=== PATIENT | male | born 1965 | race Caucasian/White ===

== ENCOUNTER → 2018-01-25 | Outpatient (CLI) | payer OTHER | LOC: FIMAGING 11:25 | PROVIDERS: ATTEND Orthopaedic Surgery | DX: M17.12 Unilateral primary osteoarthritis, left knee (principal) ==

== ENCOUNTER 2018-02-03 07:32 | Inpatient (IN) | payer BC ==
--- NOTE | 2018-02-03 06:42 | PDHPUP ---
History & Physical Update H&P update statement: This history and physical update is based on an assessment of the patient which was completed after admission or registration (within 24 hours), but prior to the surgery/procedure. H&P update: no change in patient's condition since H&P completed
--- NOTE | 2018-02-03 06:43 | PDIAF ---
- Diagnosis Diagnosis: left knee djd Code Status: Full Code - Medication Management Discharge Medications: electronically signed and located in the Home Medication List. - Orders Services needed: Home Care, Physical Therapy Home Care Face to Face: I certify that this patient was under my care and that I had the required bzka-uf-uvhp encounter meeting the encounter requirements on the discharge day. My findings support the fact that the patient is homebound as defined in Home Care Face to Face Continued: CMS Chapter 7 Medicare Benefits Manual 30.1.1 , The condition of the patient is such that there exists a normal inability to leave home and consequently, leaving home would require a considerable and taxing effort. Diet Recommendation: no restrictions on diet Diet Texture: Regular Texture Diet Additional Instructions: TOTAL JOINT ARTHROPLASTY DISCHARGE INSTRUCTIONS 1. Your surgeon follows the [facility] protocol for reducing your risk of DVT (blood clots) following surgery. Medication will be ordered to prevent blood clots. A sudden increase in calf pain and/or swelling could indicate a blood clot in your leg. If this occurs, please call your surgeon or his/her equal opportunity assistant. An ultrasound of the leg may be necessary to diagnose a blood clot. If you have conditions that make you a higher risk for blood clots, your surgeon may use more aggressive ways to prevent them. Notify your surgeon if you think you are a high risk for blood clots. 2. Wear your white surgical stockings (KATE hose) for 2 weeks. This decreases your swelling and may help prevent blood clots. It is ok to remove KATE hose at night time to give your legs a break. 3. Swelling and bruising in the surgical leg is common. If you feel that it is excessive, please notify your surgeon. 4. Elevate your surgical leg with the ankle above the hip several times every day. Please keep the leg straight when you elevate by putting pillows under your foot. Do not put pillows under your knee. This will make being able to fully straighten more difficult. This is uncomfortable, but try to do it as much as possible. 5. For total knee replacements use compressive wrap on your knee for 3-5 days after surgery, then you can discontinue it. 6. Use a walker or crutches for 1-2 weeks. Progress your weight-bearing as tolerated. You may start to use a cane when you feel stable and safe. 7. You will receive physical therapy instructions in the hospital. Continue those exercises at home. There are additional exercises in the total joint booklet you were given before surgery. Outpatient physical therapy will begin 7- 10 days after surgery. Please schedule this in advance. 8. Use ice on your knee at least 3-5 times every day for 30 minutes. This helps reduce pain and swelling. Also use it at night before falling asleep. 9. Leave your surgical dressing in place for 2 weeks. Your dressing is water resistant, but not waterproof. Cover it with Saran Wrap or Xqdwr-f-Uekq before showering. You may shower as soon as you feel safe entering a shower. If you notice bleeding from your incision 2 or 3 days after surgery, please notify your surgeon. 10. Due to narcotics, decreased activity and altered diet, most patients experience constipation after surgery. Use ypqt-yir-dlqwjjq stool softeners while you are on narcotics. 11. You may drive a car when you are comfortable bearing weight, have good muscular control of your leg and are off narcotics. This usually occurs 2-4 weeks after surgery, depending on which leg was operated on. 12. If there are questions not addressed here, please refer the [facility] book given for more information. If you still have questions, please contact your surgeon s office. 13. If you have a life-threatening emergency, please call 911 and go to the emergency room immediately. For non-life threatening emergencies, please call your physicians office for advice before going to the emergency room. - Follow Up Care Current Providers and Referrals: Bart Hutson MD [Primary Care Provider] - Basil Lopez MD [Medical Doctor] -
[~2018-02-03 07:32] MED LIST: EPINEPHRINE IU ONE; KETOROLAC TROMETHAMINE IU ONE; ROPIVACAINE 0.2% 80 MG, EPINEPHrine 0.2 MG, KETOROLAC TROMETHAMINE 30 MG in SYRINGE 0 ML IU ONE; ROPIVACAINE IU ONE; TRANEXAMIC ACID 1,000 MG in NS 100 ML IV ONE; TRANEXAMIC ACID 2,000 MG in NS 100 ML IV ONE; [UNRECOGNIZED DRUG - OTHER] IU ONE
[2018-02-03] MEDS ORDERED: FAMOTIDINE 20 MG TAB PO ONE (07:41)
[2018-02-03] MEDS ORDERED: ACETAMINOPHEN 325 MG TAB PO ONE (07:41)
[2018-02-03] MEDS ORDERED: ceFAZolin 2 GM/DEXTROSE 100 ML IV ONE (07:41)
[2018-02-03] MEDS ORDERED: LIDOCAINE 1% 2 ML INJ ID PRN (07:49)
[2018-02-03] MEDS ORDERED: LR 1,000 ML IV ONE (07:49)
[2018-02-03] MEDS ORDERED: CALCIUM CHLORIDE 1 GM/10 ML INJ ONE (08:17)
[2018-02-03] MEDS ORDERED: THROMBIN (BOVINE) 5,000 UNIT VIAL TP ONE (08:17)
[2018-02-03] MEDS ORDERED: ceFAZolin 1 GM/5 ML SYR ONE (08:18)
[2018-02-03 08:42] LABS: PLATELET COUNT 272 10^3/uL (150-400)
[2018-02-03] MEDS ORDERED: MIDAZOLAM 2 MG/2 ML VIAL IVP ONE (09:06)
--- NOTE | 2018-02-03 09:07 | PDANEPAE ---
ANE History of Present Illness tka ANE Past Medical History - Cardiovascular History Hx Hypertension: No Hx Arrhythmias: No Hx Chest Pain: No Hx Coronary Artery / Peripheral Vascular Disease: No Hx CHF / Valvular Disease: No Hx Palpitations: No - Pulmonary History Hx COPD: Yes Hx Asthma/Reactive Airway Disease: No Hx Recent Upper Respiratory Infection: No Hx Oxygen in Use at Home: No Hx Sleep Apnea: Yes Sleep Apnea Screening Result - Last Documented: Positive Pulmonary History Comment: beth positive uses cpap- instructed pt to bring to hospital - Neurologic History Hx Cerebrovascular Accident: No Hx Seizures: No Hx Dementia: No Neurologic History Comment: hx of prior back surgeries - Endocrine History Hx Diabetes: No Obesity: severe - Renal History Hx Renal Disorders: No - Liver History Hx Hepatic Disorders: No - Neurological & Psychiatric Hx Hx Neurological and Psychiatric Disorders: No - Cancer History Hx Cancer: No - Congenital Disorder History Hx Congenital Disorders: No - GI History Hx Gastrointestinal Disorders: No - Other Health History Other Health History: none - Chronic Pain History Chronic Pain: Yes (bilateral knees) - Surgical History Prior Surgeries: back surgery 8 weeks ago at [facility]. hernia surgery. previous back surgery ANE Review of Systems Review of Systems: - Exercise capacity Exercise capacity: <4 METS METS (RN): 3 METS ANE Patient History - Allergies Allergies/Adverse Reactions: codeine Allergy (Verified 01/31/18 16:50) Swelling/neck,face,throat morphine Allergy (Verified 01/31/18 16:50) Swelling/neck,face,throat - Home Medications Home medications: home medication list seen and reviewed Home Medications: Acetaminophen [Tylenol 325mg (*)] 325 mg PO Q6HRS PRN 01/31/18 [Last Taken 02/02 20:00] oxyCODONE/APAP 5/325 [Percocet 5/325 (*)] 0.5 tab PO DAILY 01/31/18 [Last Taken 02/02/18 08:00] - NPO status NPO Status: no food or drink >8 hours NPO Since - Liquids (Date): 02/02/18 NPO Since - Liquids (Time): 18:00 NPO Since - Solids (Date): 02/02/18 - Anes Hx Anes Hx: no prior problems - Smoking Hx Smoking Status: Never smoked - Family Anes Hx Family Hx Anesthesia Complications: none ANE Labs/Vital Signs - Labs Result Diagrams: 02/03/18 08:30 - Vital Signs Blood Pressure: 131/76 Heart Rate: 78 Respiratory Rate: 16 O2 Sat (%): 92 Height: 182.88 cm Weight: 158.757 kg ANE Physical Exam - Airway Mallampati Score: Class 2 Mouth exam: normal dental/mouth exam - Pulmonary Pulmonary: no respiratory distress - Cardiovascular Cardiovascular: regular rate and rhythym - ASA Status ASA Status: III ANE Anesthesia Plan Anesthesia Plan: general endotracheal anesthesia Regional Anesthesia: adductor canal FNB
[2018-02-03] MEDS ORDERED: DEXAMETHASONE 4 MG/ML VIAL ONE (09:09)
[2018-02-03] MEDS ORDERED: ROCURONIUM 50 MG/5 ML VIAL ONE ×2 (09:09→10:17)
[2018-02-03] MEDS ORDERED: SUCCINYLCHOLINE CHLORIDE 200 MG/10 ML SYR IVP ONE (09:09)
[2018-02-03] MEDS ORDERED: ONDANSETRON 4 MG/2 ML VIAL ONE (09:09)
[2018-02-03] MEDS ORDERED: KETOROLAC 30 MG/1 ML SDV ONE (09:09)
[2018-02-03] MEDS ORDERED: MIDAZOLAM 2 MG/2 ML VIAL ONE (09:13)
[2018-02-03] MEDS ORDERED: PROPOFOL 200 MG/20 ML VIAL ONE (09:15)
[2018-02-03] MEDS ORDERED: LIDOCAINE 2% 5 ML SDV ONE (09:15)
[2018-02-03] MEDS ORDERED: HYDROmorphONE/DILAUDID 2 MG/ML INJ ONE ×2 (09:35→11:53)
[2018-02-03] MEDS ORDERED: ROPIVACAINE HCL 150 MG/30 ML INJ ONE (09:56)
[2018-02-03] MEDS ORDERED: LABETALOL HCL 5 MG/ML 20 ML MDV ONE (10:00)
[2018-02-03] MEDS ORDERED: SUGAMMADEX SODIUM 200 MG/2 ML VIAL IVP ONE ×2 (11:02)
[2018-02-03] MEDS ORDERED: ALBUTEROL 3 ML DEYVIAL IH PRN (11:15)
[2018-02-03] MEDS ORDERED: oxyCODONE IR 5 MG TAB PO PRN (11:15)
[2018-02-03] MEDS ORDERED: TEMAZEPAM 15 MG CAP PO PRN (11:15)
[2018-02-03] MEDS ORDERED: POLYETHYLENE GLYCOL 3350 17 GM PKT PO PRN (11:15)
[2018-02-03] MEDS ORDERED: DIPHENOXYLATE/ATROPINE LOMOTIL 1 TAB PO PRN (11:15)
[2018-02-03] MEDS ORDERED: LACTULOSE 20 GM/30 ML UDCUP PO PRN (11:15)
[2018-02-03] MEDS ORDERED: diphenhydrAMINE 25 MG CAP PO PRN (11:15)
[2018-02-03] MEDS ORDERED: ONDANSETRON 4 MG/2 ML VIAL IVP PRN ×2 (11:15)
[2018-02-03] MEDS ORDERED: PROMETHAZINE HCL 25 MG SUPPR PR PRN (11:15)
[2018-02-03] MEDS ORDERED: METOCLOPRAMIDE 10 MG/2 ML VIAL IVP PRN (11:15)
[2018-02-03] MEDS ORDERED: NALOXONE HCL 0.4 MG/ML INJ IVP PRN (11:15)
[2018-02-03] MEDS ORDERED: BISACODYL 10 MG SUPP PR PRN (11:15)
[2018-02-03] MEDS ORDERED: CYCLOBENZAPRINE 10 MG TAB PO PRN (11:15)
[2018-02-03] MEDS ORDERED: PROMETHAZINE HCL 25 MG/ML INJ IVP PRN (11:15)
[2018-02-03] MEDS ORDERED: ONDANSETRON DISINTEGRATING 4 MG TAB PO PRN (11:15)
[2018-02-03] MEDS ORDERED: LR 500 ML IV PRN (11:15)
[2018-02-03] MEDS ORDERED: MAGNESIUM HYDROXIDE 30 ML UDCUP PO PRN (11:15)
--- NOTE | 2018-02-03 11:17 | POSTOPPROG ---
Post Op Note Date of Operation: 02/03/18 Surgeon: Basil Lopez Screener Operator: jose Anesthesiologist: alison Anesthesia: GET(General Endotracheal) Pre-op Diagnosis: left knee djd Post-op Diagnosis: same Indication: same Procedure: left tka Inf/Abcess present in the surg proc area at time of surgery?: No Depth: Deep Incisional (Fascial) EBL: 100-500
[2018-02-03] MEDS ORDERED: LR 1,000 ML IV SCH (11:30)
--- NOTE | 2018-02-03 11:52 | POSTANESTH ---
Post Anesthetic Evaluation Cardiovascular Status: Normal, Stable Respiratory Status: Normal, Stable Level of Consciousness/Mental Status: Can Participate in Eval Pain Control: Adequate, Prn Tx Ordered Nausea/Vomiting Control: Adequate, Prn Tx Ordered Complications Possibly Related to Anesthesia: None Noted
[2018-02-03] MEDS: HYDROmorphONE/DILAUDID 2 MG/ML INJ IVP PRN ×2 (11:55→12:06)
[2018-02-03] MEDS: ACETAMINOPHEN 325 MG TAB PO SCH ×2 (13:16→17:31)
--- NOTE | 2018-02-03 13:53 | PDMN ---
Medical Necessity Medical necessity: [facility] S700 knee arthroplasty OP: L TKA -- 2 days INPT approved auth # [id number] CPT 97334
--- NOTE | 2018-02-03 16:11 | ASMTCMCOM ---
CM Note CM Note Notes: Pt is s/p L TKA. PT/OT evals pending. He lives with his in [place]. Attempted to see to discuss d/c needs however pt sleeping. CM will follow for any d/c needs. D/C Plan: TBD Date Signed: 02/03/2018 04:10 PM Electronically Signed By:COSTA Quintero
[2018-02-03] MEDS: TRANEXAMIC ACID 650 MG TAB PO SCH (17:31)
[2018-02-03] MEDS: ceFAZolin 2 GM/DEXTROSE 100 ML IV SCH (17:34)
[2018-02-03] MEDS: ASPIRIN 325 MG TAB PO SCH (20:13)
[2018-02-03] MEDS: FAMOTIDINE 20 MG TAB PO SCH (20:13)
[2018-02-03] MEDS: SENNOSIDES/DOCUSATE SODIUM TAB PO SCH (20:13)
[2018-02-04] MEDS: ACETAMINOPHEN 325 MG TAB PO SCH ×2 (00:59→06:04)
[2018-02-04] MEDS: ceFAZolin 2 GM/DEXTROSE 100 ML IV SCH (01:00)
[2018-02-04] MEDS: TRANEXAMIC ACID 650 MG TAB PO SCH ×2 (01:00→12:22)
--- NOTE | 2018-02-04 07:37 | SOAPPROG ---
SOAP Progress Note Assessment/Plan: Assessment: s/p tka Plan:d/c home dvt precautions reviewed pt/ot fu at two weeks seek attn for increasing pain, cp sob or other complaint 02/04/18 07:36 Subjective: doing well mild pain no cp os sob Objective: Vital Signs Temp Pulse Resp BP Pulse Ox 36.6 C 94 16 114/66 94 02/04/18 02:50 02/04/18 02:50 02/04/18 02:50 02/04/18 02:50 02/04/18 02:50 Laboratory Results 02/04/18 04:25 02/03/18 02/04/18 02/05/18 05:59 05:59 05:59 Intake Total 1250 Output Total 650 Balance 600 dressing intact intact pf,df, ehl neg homans bailey xrays stable anatomic alignement no fx or lucency ICD10 Worksheet Patient Problems: Problems Problem Status Onset Arthritis of knee Acute - ICD10 Problem Qualifiers (1) Arthritis of knee
--- NOTE | 2018-02-04 07:37 | PDIAF ---
- Diagnosis Diagnosis: left knee djd Code Status: Full Code - Medication Management Discharge Medications: electronically signed and located in the Home Medication List. - Orders Services needed: Home Care, Physical Therapy Home Care Face to Face: I certify that this patient was under my care and that I had the required ckis-mh-glsf encounter meeting the encounter requirements on the discharge day. My findings support the fact that the patient is homebound as defined in Home Care Face to Face Continued: CMS Chapter 7 Medicare Benefits Manual 30.1.1 , The condition of the patient is such that there exists a normal inability to leave home and consequently, leaving home would require a considerable and taxing effort. Diet Recommendation: no restrictions on diet Diet Texture: Regular Texture Diet Additional Instructions: TOTAL JOINT ARTHROPLASTY DISCHARGE INSTRUCTIONS 1. Your surgeon follows the [facility] protocol for reducing your risk of DVT (blood clots) following surgery. Medication will be ordered to prevent blood clots. A sudden increase in calf pain and/or swelling could indicate a blood clot in your leg. If this occurs, please call your surgeon or his/her corporate law assistant. An ultrasound of the leg may be necessary to diagnose a blood clot. If you have conditions that make you a higher risk for blood clots, your surgeon may use more aggressive ways to prevent them. Notify your surgeon if you think you are a high risk for blood clots. 2. Wear your white surgical stockings (KATE hose) for 2 weeks. This decreases your swelling and may help prevent blood clots. It is ok to remove KATE hose at night time to give your legs a break. 3. Swelling and bruising in the surgical leg is common. If you feel that it is excessive, please notify your surgeon. 4. Elevate your surgical leg with the ankle above the hip several times every day. Please keep the leg straight when you elevate by putting pillows under your foot. Do not put pillows under your knee. This will make being able to fully straighten more difficult. This is uncomfortable, but try to do it as much as possible. 5. For total knee replacements use compressive wrap on your knee for 3-5 days after surgery, then you can discontinue it. 6. Use a walker or crutches for 1-2 weeks. Progress your weight-bearing as tolerated. You may start to use a cane when you feel stable and safe. 7. You will receive physical therapy instructions in the hospital. Continue those exercises at home. There are additional exercises in the total joint booklet you were given before surgery. Outpatient physical therapy will begin 7- 10 days after surgery. Please schedule this in advance. 8. Use ice on your knee at least 3-5 times every day for 30 minutes. This helps reduce pain and swelling. Also use it at night before falling asleep. 9. Leave your surgical dressing in place for 2 weeks. Your dressing is water resistant, but not waterproof. Cover it with Saran Wrap or Xdara-u-Cbex before showering. You may shower as soon as you feel safe entering a shower. If you notice bleeding from your incision 2 or 3 days after surgery, please notify your surgeon. 10. Due to narcotics, decreased activity and altered diet, most patients experience constipation after surgery. Use lmbt-rke-mxfptte stool softeners while you are on narcotics. 11. You may drive a car when you are comfortable bearing weight, have good muscular control of your leg and are off narcotics. This usually occurs 2-4 weeks after surgery, depending on which leg was operated on. 12. If there are questions not addressed here, please refer the [facility] book given for more information. If you still have questions, please contact your surgeon s office. 13. If you have a life-threatening emergency, please call 911 and go to the emergency room immediately. For non-life threatening emergencies, please call your physicians office for advice before going to the emergency room. - Follow Up Care Current Providers and Referrals: Bart Hutson MD [Primary Care Provider] - Basil Lopez MD [Medical Doctor] -
[2018-02-04] MEDS: FAMOTIDINE 20 MG TAB PO SCH (08:23)
[2018-02-04] MEDS: ASPIRIN 325 MG TAB PO SCH (08:23)
[2018-02-04] MEDS: SENNOSIDES/DOCUSATE SODIUM TAB PO SCH (08:25)
[2018-02-04 08:32] VITALS: BP 127/75
--- NOTE | 2018-02-04 12:19 | ASMTLACE ---
LACE Length of stay for Answers: 2 days current admission Acuity / Level of Answers: Yes Care: Did the patient have an inpatient admission? Comorbidities - select Answers: Chronic pulmonary disease all that apply Other Notes: sleep apnea # of Emergency department Answers: 0 visits in the last 6 months Score: 8 Date Signed: 02/04/2018 12:19 PM Electronically Signed By:COSTA Nunez
--- NOTE | 2018-02-04 12:31 | ASMTCMCOM ---
CM Note CM Note Notes: PT rec HHC, pt amenable. Orders sent in [employer] to [facility]. Pt address/phone verified. Date Signed: 02/04/2018 12:30 PM Electronically Signed By:COSTA Nunez
--- NOTE | 2018-02-05 13:54 | ASDISCHSUM ---
Discharge Information Plan Status:Home with Home Health Medically Cleared to Leave: Discharge Date:02/04/2018 12:40 PM CM D/C Disposition: ADT D/C Disposition:Home Health Service Projected Discharge Date:02/04/2018 11:00 AM Transportation at D/C: Discharge Delay Reason: Follow-Up Date:02/04/2018 11:00 AM Discharge Slot: Final Diagnosis: Placement Information Referral Type:*Home Health Care Services Referral ID:[id number] Provider Name:[facility] Address 1:[address] [address] Address 2: City:[place] Selection Factors: State:[place] Patient Contact Information Contact Name:PEEWEE Relationship: Address:[address] Home Phone: City:[place] Alternate Phone: State/Zip Code:[place] [address] Email: Financial Information Financial Class:BCOP Primary Plan Desc:BC OUT OF STATE [facility] Primary Plan Number:[id number] Secondary Plan Desc: Secondary Plan Number: Assessment Information LACE LACE Length of stay for Answers: 2 days current admission Acuity / Level of Answers: Yes Care: Did the patient have an inpatient admission? Comorbidities - select Answers: Chronic pulmonary disease all that apply Other Notes: sleep apnea # of Emergency department Answers: 0 visits in the last 6 months Score: 8 Date Signed: 02/04/2018 12:19 PM Electronically Signed By:COSTA Nunez [facility] CM Progress Note CM Note CM Note Notes: Pt is s/p L TKA. PT/OT evals pending. He lives with his in [place]. Attempted to see to discuss d/c needs however pt sleeping. CM will follow for any d/c needs. D/C Plan: TBD Date Signed: 02/03/2018 04:10 PM Electronically Signed By:COSTA Quintero [facility] CM Progress Note CM Note CM Note Notes: PT rec HHC, pt amenable. Orders sent in [facility] to [facility]. Pt address/phone verified. Date Signed: 02/04/2018 12:30 PM Electronically Signed By:COSTA Nunez Intervention Information
--- NOTE | 2018-02-09 13:01 | GOP ---
DATE OF OPERATION: 02/03/2018 SURGEON: Basil Lopez MD BLADE BENDER FURNACE TENDER: Devendra Joshi, certified surgical tech/first assistant who was a medical necessity for the entirety of the case. PREOPERATIVE DIAGNOSIS: Left knee degenerative joint disease. POSTOPERATIVE DIAGNOSIS: Left knee degenerative joint disease. PROCEDURE PERFORMED: Left total knee arthroplasty. FINDINGS: SPECIMENS: To Pathology, the bony cuts. INDICATIONS: The patient is a 52-year-old gentleman with end-stage arthritis to the left and right k nees. He has interference with his activities of daily living. He has failed all attempts at conser vative management. I have, therefore, recommended total knee replacement. He understands the surgic al procedure, risks, benefits, alternatives, and wished to proceed. DESCRIPTION OF PROCEDURE: Patient was identified in the preanesthesia area. Left knee was clearly d emarcated as operative site with an indelible marker. He was given 2 g of Ancef intravenously in rou te to the operative suite. In the OR, a spinal anesthetic was placed, followed by positioning the pa tient in supine position. Attention was turned to the left knee, which was sterilely prepped and tomas ped in usual fashion. Appropriate time-out procedure was carried out. The limb was exsanguinated wi th an Esmarch bandage. Tourniquet inflated to 300 mmHg. Standard anterior midline incision was made. Thick subcutaneous flaps were elevated, followed by med ial parapatellar arthrotomy. Subperiosteal elevation was carried out to the mid coronal plane. Retr actors were placed. There was tricompartmental arthritic change. Decision was made to proceed with total knee replacement. 2 pins were then placed medial, lateral across the distal femur, and the femoral reference array affi xed. Femoral check point was placed in the same area. A separate percutaneous incision was made ove r the mid tibia and 2 pins were then placed, followed by attaching the tibial reference array and the tibial check point was placed. All bony landmarks were entered in the computer in standard fashion. Using the MAKOplasty software, the knee was balanced through the flexion-extension arc. The resectio ns were made for a size 7 tibia, size 6 femur, and a 7 x 9 mm polyethylene spacer was then placed. T his allowed full extension and flexion to 125 degrees with no instability throughout the flexion-exte nsion arc. Trial components were withdrawn. The bony surfaces cleansed and the tibia and femur press-fit in sta ndard fashion. A 7 x 9 mm polyethylene spacer was then placed and confirmed to be fully seated. Thi s allowed full flexion extension and stability of the knee as previous. The knee cap was then everte d, cut in a freehand cutting technique, and drill holes were made for 38 mm poly patella. The knee c ap was then pressed into position. The knee was taken through full range of motion through flexion-e xtension arc and was stable. The wound was copiously irrigated with pulsatile lavage solution. The joint capsule instilled with a joint cocktail of ropivacaine, morphine, Toradol, and epinephrine. The medial parapatellar arthroto my closed using #1 Ethibond suture. The knee instilled with platelet-rich plasma. Subcutaneous tiss ue was closed using 2-0 Monocryl. Skin was closed using a ZipLine closure and sterile dressing was o mina-wrapped. Patient was awakened, extubated, and taken to recovery room in good, stable condition. TOTAL TOURNIQUET TIME: 1 hour and 10 minutes. COMPLICATIONS: None. IMPLANTS: Bone Gap Triathlon posterior stabilized femur size 6, size 7 tibia, 7 x 9 mm polyethylene s pacer, and 38 mm patella. DISPOSITION: To recovery room, then the floor. /[id number]/MODL
--- NOTE | 2018-02-09 13:26 | GDS ---
ADMISSION DIAGNOSIS: Left knee degenerative joint disease. DISCHARGE DIAGNOSIS: Left knee degenerative joint disease. PROCEDURE: Left total knee arthroplasty. HISTORY OF PRESENT ILLNESS: The patient is a 52-year-old gentleman with end-stage arthritis to both knees. He presents for elective total knee replacement on the left. He understood the risks, benefi ts, alternatives, and wished to proceed. Written consent was signed and placed in the patient's [facility] t. HOSPITAL COURSE: The patient was admitted overnight after uncomplicated total knee arthroplasty. He tolerated the procedure well. At the time of discharge, he is tolerating an oral diet, pain was wel l controlled on oral medicines. He is voiding without difficulty. Dressing is clean, dry, and intac t. DISCHARGE ACTIVITY: Weightbearing. Range of motion as tolerated. Keep the dressing intact. IF bec omes saturated, change daily with pressure dressing. Seek attention for increasing redness, swelling , drainage, discharge, shortness of breath, leg pain. FOLLOWUP: In 2 weeks. /[id number]/MODL
== END 2018-02-04 12:40 | disposition home health service (06) | DRG 470 ==
LOC: F3N 07:32
PROVIDERS: ADMIT Orthopaedic Surgery; ATTEND Orthopaedic Surgery
PROC: 0SRD0JZ Replacement of Left Knee Joint with Synthetic Substitute, Open Approach (ICD-10-PCS; principal; 2018-02-03 09:30)
DX: M17.12 Unilateral primary osteoarthritis, left knee (principal); Z68.42 Body mass index [BMI] 45.0-49.9, adult; E66.01 Morbid (severe) obesity due to excess calories; G47.33 Obstructive sleep apnea (adult) (pediatric)
CPT/HCPCS: 97116-GP; 97161-GP; 97165-GO; J0171; J0330; J0690; J1100; J1170; J1885; J2250; J2405; J2704; J2795

== ENCOUNTER → 2018-03-14 | Outpatient (CLI) | payer BC | LOC: BMCIMAGING 09:16 | PROVIDERS: ATTEND Physician Assistant | DX: Z47.1 Aftercare following joint replacement surgery (principal); Z96.652 Presence of left artificial knee joint ==

== ENCOUNTER → 2018-04-24 | Outpatient (CLI) | payer BC | LOC: BMCIMAGING 09:08 | PROVIDERS: ATTEND Orthopaedic Surgery | DX: Z47.1 Aftercare following joint replacement surgery (principal); Z96.652 Presence of left artificial knee joint ==